=== PATIENT | male | born 1930 | race American Indian/Alaskan Native ===

== ENCOUNTER 2018-08-22 07:43 | Outpatient (CLI) | payer MEDICARE, OTHER | END 2018-08-22 07:44 | disposition home or self-care (01) | LOC: C.PAT 07:43 | DX: Z01.818 Encounter for other preprocedural examination (principal) ==

== ENCOUNTER 2018-08-26 05:59 | Day surgery (SDC) | payer MEDICARE, OTHER ==
[2018-08-22 08:09] VITALS: BMI 25.0
[2018-08-26] MEDS ORDERED: Iohexol 240 (50 ml) ONE (07:46)
[2018-08-26] MEDS ORDERED: Propofol 10 mg/ml Inj (20 ML) ONE (07:46)
[2018-08-26] MEDS ORDERED: cefTRIAXone 1 gm 1 GM/100 ML BAG IVPB ONE (07:46)
[2018-08-26] MEDS ORDERED: Lidocaine Hydrochloride 5 ML INJ ONE (07:58)
--- NOTE | 2018-08-26 08:46 | PCM.SURG1 ---
Surgeon's Initial Post Op Note - Surgeon's Notes Surgeon: J Carlos Morales Byproduct Engineer: none Type of Anesthesia: General LMA Pre-Operative Diagnosis: Hematuria. Bladder Tumor. Hydronephrosis Operative Findings: same, urethral stricture Post-Operative Diagnosis: same Operation Performed: cysto. urethral dilation. TUR-BT. TUR-BN. EUA Specimen/Specimens Removed: Bladder bx. urine. Bladder neck Estimated Blood Loss: EBL {In ML}: 5 Blood Products Given: N/A Post-Op Condition: Good Date of Surgery/Procedure: 08/26/18 Time of Surgery/Procedure: 08:20
[2018-08-26] MEDS: HYDROmorphone 0.5 mg/0.5 ml ISec IVP PRN ×2 (08:51→09:24)
[2018-08-26 10:27] VITALS: RESP 11
[2018-08-26 10:37] VITALS: O2SAT 99
[2018-08-26 11:16] VITALS: BP 155/69; PULSE 69; TEMP 97.1
--- NOTE | 2018-08-26 15:09 | OP ---
PROCEDURE DATE: 08/26/2018 PREOPERATIVE DIAGNOSES: Hematuria. Hydronephrosis. Bladder tumor. POSTOPERATIVE DIAGNOSES: Hematuria. Hydronephrosis. Bladder tumor. Urethral stricture. Prostatic hypertrophy. PROCEDURES: Cystoscopy. Urethral dilation. Attempted retrograde pyelogram. Transurethral resection of bladder tumor. Transurethral resection of bladder neck. Exam under anesthesia/anorectal examination. OPERATING SURGEON: Dr. Delaney Morales. DESCRIPTION OF PROCEDURE: As follows. The patient was placed in lithotomy position. The patient received perioperative antibiotics. The genitalia were prepped and draped in sterile fashion. A 22-E[place] cystoscope sheath was introduced under direct vision. There were noted to be multiple strictures of the bulbous urethra which were dilated over ureteral catheter by passage of the cystoscope sheath. Prostatic urethra was occlusive. Prostatic urethra was approximately 4 cm in length. There was abnormal mucosa located at the bladder neck. The urine within the bladder was sent for bacteriologic and cytologic examination. The urine within the bladder had demonstrated mild hematuria. The bladder was noted to be moderately trabeculated. There was noted to have multiple bladder tumors involving the floor of the bladder on the right side. Tumor also involved the right trigone. There was tumor more toward the left. The ureteral orifices could not be identified. Attempted retrograde pyelogram was performed. However, the orifice could not be identified or catheterized. The lateral anna and anterior anna of the bladder was free of tumor. There was no bladder diverticulum. The cystoscope and sheath removed. A 26-Eritrean continuous flow resectoscope sheath was introduced under direct vision using the visual obturator. The resectoscope was inserted. Bladder tumor was resected. The largest papillary tumor involved the floor of the bladder on the right and the trigone on the right. The bases tumor was sent separately for pathologic examination. Other sites were resected including the bladder neck as well as including the right floor as well as the trigone. The specimens were removed and sent individually for pathologic examination. The bladder was reinspected. The bladder had been inspected with 30-degree and 70-degree lens. There was no residual tumor identified. There was no bleeding identified. The resectoscope and sheath removed. Cho catheter was inserted. Bladder drainage was clear. Exam under anesthesia/anorectal examination/bimanual examination was performed. Prostate was enlarged. Prostate was approximately 30 g in size. There was mild fullness on the right base of the bladder. There was no induration or mass. There was no fixation. The patient was returned to the supine position. The patient tolerated the procedure without complication. Delaney Morales MD cc: Rashaun Cortés MD
--- NOTE | 2018-08-26 16:43 | RAD ---
Date of service: 08/26/2018 HISTORY: BLADDER TUMOR COMPARISON: Abdomen radiograph performed 02/28/16 TECHNIQUE: 1 view obtained. FINDINGS: Nonspecific bowel gas pattern without evidence of obstruction. Pelvic calcifications, likely phleboliths. Marked degenerative changes of the lumbar spine. Mild scoliosis. IMPRESSION: No acute findings identified.
== END 2018-08-26 11:16 | disposition home or self-care (01) ==
LOC: C.SDS 05:59
PROVIDERS: ATTEND Urology
DX: C67.9 Malignant neoplasm of bladder, unspecified (principal); N13.30 Unspecified hydronephrosis; N35.919 Unspecified urethral stricture, male, unspecified site; N40.0 Benign prostatic hyperplasia without lower urinary tract symptoms
CPT/HCPCS: 52234; 52500; 74018; 87086; 88104; 88305; A4358; C1758; J0696; J1170